=== PATIENT | male | born 1980 | race Caucasian/White ===

== ENCOUNTER → 2019-02-17 | Outpatient (CLI) | payer OTHER | LOC: NUC 02-16 15:47 | DX: R10.11 Right upper quadrant pain (principal); M25.511 Pain in right shoulder ==

== ENCOUNTER → 2020-08-29 | Outpatient (CLI) | payer OTHER | LOC: CAT 15:32 | PROVIDERS: ATTEND Family Medicine | DX: Z13.6 Encounter for screening for cardiovascular disorders (principal); I25.10 Atherosclerotic heart disease of native coronary artery without angina pectoris; E78.00 Pure hypercholesterolemia, unspecified ==